=== PATIENT | male | born 1995 ===

== ENCOUNTER 2021-12-21 12:59 | Outpatient (RCR) | payer SELFPAY ==
--- NOTE | 2021-12-22 09:48 | PC.NURSE ---
Patient notified that his [employer] insurance is out of network with [facility]. They will only cover inpatient level of care. Patient also has a 20,000 deductible. I did give patient the number to Financial Assistance and [facility]. Patient has the crisis number if needed. Patient denied thoughts to harm or kill himself. I also let patient know that we will check with [facility] to see if we can get a single case agreement. Patient also encouraged to call his insurance company regarding his mental health benefits. Patient reports he moved to this state 2 years ago. When I called insurance for precertification/authorization they stated the patient needs to call them to update his address and phone number with them, patient is aware. PHP team is aware.
--- NOTE | 2021-12-22 13:00 | PC.NURSE ---
This program director scouting was notified from [facility] staff that [place] health insurance does not accept our services. This fire safety manager called the insurance company and they identified local services that are in network for Russell. Russell is interested in a PCP and OP therapist. This fire safety manager called Russell with the following options for treatment for themselves in the local area: [facility] in [facility], has both [place] PCP providers and mental health treatment. Also: [facility] in [place] also has PCP and Therapists. Russell was provided with the names, addresses, and telephone numbers. Specific therapists were highlighted for Russell's specific personal struggles. Russell stated that they're going to call at 1:30pm and call me back to let me know the outcome. Senior National Account Manager asked Russell how they're feeling and how their doing today with mood. Russell reported safe, no SI or self-harming thoughts/behaviors. Russell knows crisis numbers as well.
--- NOTE | 2021-12-23 09:49 | PC.NURSE ---
On 12/23/2021, This grain manager called Russell in the morning and requested an update regarding the referrals that this grain manager provided yesterday. Russell said they'd call today. This grain manager asked how they're doing today and Russell said good. This grain manager told Russell that she called [facility] and they said that the [place] location is booked but that the [place] site will take patients. Provided Russell with the telephone number to call today. Told Russell that PHP will discharge them today and if they need additional aftercare assistance to please call me directly. Russell was thankful.
--- NOTE | 2021-12-23 11:21 | PC.NURSE ---
This desktop manager received a telephone call from Russell indicating that they followed through with the recommendation at [facility] for PCP and counseling services. They have an initial consultation and PCP appointment on January 04, 2022.
== END 2021-12-21 23:59 | disposition home or self-care (01) ==
LOC: HO.PHPA 12:59
PROVIDERS: Visit Provider Psychiatry & Neurology Psychiatry
DX: F31.4 Bipolar disorder, current episode depressed, severe, without psychotic features (principal); F42.9 Obsessive-compulsive disorder, unspecified; F12.20 Cannabis dependence, uncomplicated; F90.9 Attention-deficit hyperactivity disorder, unspecified type; F41.1 Generalized anxiety disorder
CPT/HCPCS: 90791